=== PATIENT | female | born 1970 | race Caucasian/White ===

== ENCOUNTER 2020-09-16 22:52 | Emergency (ER) | payer OTHER ==
[~2020-09-16] VITALS: Ht 162.6 cm; Wt 86.2 kg
[2020-09-16 23:06] LABS: *BLOOD, URINE 3+ (NEGATIVE); *CLARITY,URINE CLOUDY (CLEAR); *COLOR,URINE RED (YELLOW); *KETONES,URINE TRACE (NEGATIVE); LEUKOCYTE ESTERASE ,URINE 3+ (NEGATIVE); NITRITE, URINE NEGATIVE (NEGATIVE); PH,URINE 6.5 (5.0-8.0); UGLUCOSE NEGATIVE (NEGATIVE)
--- NOTE | 2020-09-16 23:07 | NUR ---
Patient walked in from home with c/o pain with urination 1 hour prior to arrival.
--- NOTE | 2020-09-16 23:07 | NUR ---
Dr. Sánchez at bedside for MSE.
[2020-09-16 23:43] LABS: CREATININE 1.4 mg/dL (0.6-1.3)
[2020-09-16] MEDS ORDERED: PHENAZOPYRIDINE HCL 100 MG TABLET PO ONE (23:45)
[2020-09-16] MEDS ORDERED: SULFAMETH/TRIMETH 800/160 MG TABLET PO ONE (23:45)
[2020-09-16] MEDS ORDERED: PHENAZOPYRIDINE HCL 100 MG TABLET ONE (23:47)
[2020-09-16] MEDS ORDERED: SULFAMETH/TRIMETH 800/160 MG TABLET ONE (23:48)
[2020-09-16 23:49] LABS: BILIRUBIN,TOTAL 0.2 mg/dL (0.2-1.0); TOTAL PROTEIN, SERUM 7.2 g/dL (6.4-8.2)
[2020-09-16 23:52] LABS: *BILIRUBIN,URIN 1+ (NEGATIVE)
[2020-09-16 23:55] LABS: BACTERIA,URINE NONE SEEN /HPF (NONE SEEN); RBC,URINE TNTC /HPF (0-3); SQUAMOUS EPITHELIAL CELL,UR NONE SEEN /HPF (NONE SEEN); WBC,URINE 0-3 /HPF (0-3)
[2020-09-16 23:57] LABS: HEMATOCRIT 36.2 % (31.2-41.9); MEAN CORPUSCULAR HEMOGLOBIN 30.7 uug (24.7-32.8); MEAN CORPUSCULAR VOLUME 90.3 fL (75.5-95.3); PLATELET COUNT (AUTO) 247 K/uL (179-408)
--- NOTE | 2020-09-17 00:29 | NUR ---
Patient returned from CT scan.
[2020-09-17] MEDS ORDERED: SULF1TAB48 PO (01:17)
[2020-09-17] MEDS ORDERED: PHEN-705 PO (01:17)
--- NOTE | 2020-09-17 01:25 | NUR ---
Patient discharged to home in stable condition. Written and verbal after care instructions given. Patient verbalizes understanding of instructions. Stressed follow up or return to ER for worsening s/s.
[2020-09-17 01:26] VITALS: BP 156/87
== END 2020-09-17 01:26 | disposition home or self-care (01) ==
LOC: ER 22:54
DX: N39.0 Urinary tract infection, site not specified (principal); R31.0 Gross hematuria; N20.0 Calculus of kidney
CPT/HCPCS: 36415; 85025; 87086; A4663

== ENCOUNTER 2021-07-26 12:44 | Emergency (ER) | payer OTHER ==
[~2021-07-26] VITALS: Ht 162.6 cm; Wt 86.2 kg
[~2021-07-26 12:44] MED LIST: PHEN-705 PO; SULF1TAB48 PO
--- NOTE | 2021-07-26 12:54 | NUR ---
Dr Mcclellan at the bedside for MSE.
[2021-07-26] MEDS ORDERED: IBUPROFEN 600 MG TABLET ONE (12:59)
[2021-07-26] MEDS ORDERED: IBUPROFEN 600 MG TABLET PO ONE (13:00)
[2021-07-26] MEDS ORDERED: HYDR-4209 PO (14:18)
[2021-07-26 14:40] VITALS: BP 135/88
== END 2021-07-26 14:42 | disposition home or self-care (01) ==
LOC: ER 12:45
DX: R07.81 Pleurodynia (principal); Z91.81 History of falling; Z87.442 Personal history of urinary calculi; Z87.440 Personal history of urinary (tract) infections
CPT/HCPCS: 71101; 93005; A4663

== ENCOUNTER 2022-02-08 14:41 | Emergency (ER) | payer OTHER ==
[~2022-02-08] VITALS: Ht 162.6 cm; Wt 87.5 kg
[~2022-02-08 14:41] MED LIST changes: +HYDR-4209 PO
[2022-02-08 15:37] LABS: CARBON DIOXIDE 28 mmol/L (21-32); CHLORIDE 102 mmol/L (98-107); CREATININE 0.9 mg/dL (0.6-1.3); GLUCOSE 103 mg/dL (74-106); POTASSIUM 3.9 mmol/L (3.5-5.1); UREA NITROGEN, BLOOD 10 mg/dL (7-18)
[2022-02-08 15:46] LABS: HEMATOCRIT 40.1 % (31.2-41.9); MEAN CORPUSCULAR HEMOGLOBIN 29.7 uug (24.7-32.8); MEAN CORPUSCULAR VOLUME 89.6 fL (75.5-95.3); PLATELET COUNT (AUTO) 268 K/uL (179-408)
[2022-02-08 15:50] LABS: ALANINE AMINOTRANSFERASE 26 U/L (14-59); ALKALINE PHOSPHATASE 90 U/L (50-136); ASPARTATE AMINOTRANSFERASE 22 U/L (15-37); BILIRUBIN,DIRECT 0.1 mg/dL (0.0-0.2); BILIRUBIN,TOTAL 0.5 mg/dL (0.2-1.0); TOTAL PROTEIN, SERUM 8.2 g/dL (6.4-8.2)
[2022-02-08] MEDS ORDERED: HYDR-501 PO (16:10)
[2022-02-08] MEDS ORDERED: CAPS42.514 TP (16:10)
--- NOTE | 2022-02-08 16:39 | NUR ---
Gave pt RX and d/c instructions, verbalized understanding.
== END 2022-02-08 17:00 | disposition home or self-care (01) ==
LOC: ER 14:41
DX: R07.9 Chest pain, unspecified (principal); R20.2 Paresthesia of skin; R03.0 Elevated blood-pressure reading, without diagnosis of hypertension
CPT/HCPCS: 36415; 71045; 84443; 84484; 85025; 93005; A4663

== ENCOUNTER 2023-01-27 21:50 | Emergency (ER) | payer OTHER ==
[~2023-01-27] VITALS: Ht 162.6 cm; Wt 81.6 kg
[~2023-01-27 21:50] MED LIST changes: +CAPS42.514 TP; +HYDR-501 PO
[2023-01-27 22:57] LABS: HEMOGLOBIN 12.3 g/dL (10.9-14.3); RED CELL DISTRIBUTION WIDTH 13.7 % (12.3-17.7)
[2023-01-27 23:01] LABS: BASOPHILS % (AUTO) 0.6 % (0.0-2.0); EOSINOPHILS # (AUTO) 0.2 K/uL (0.0-0.7); EOSINOPHILS % (AUTO) 3.2 % (0.0-7.0); HEMATOCRIT 36.3 % (31.2-41.9); LYMPHOCYTES % (AUTO) 30.3 % (20.5-51.5); MEAN CORPUSCULAR HEMOGLOBIN 30.6 uug (24.7-32.8); MEAN CORPUSCULAR HGB CONC 34 g/dL (32.3-35.6); MEAN CORPUSCULAR VOLUME 90.4 fL (75.5-95.3); MONOCYTES # (AUTO) 0.4 K/uL (0.1-1.30); MONOCYTES % (AUTO) 5.6 % (0.0-11.0); NEUTROPHILS % (AUTO) 60.3 % (38.5-71.5); PLATELET COUNT (AUTO) 215 K/uL (179-408); RED BLOOD CELL COUNT(AUTO) 4.01 MIL/uL (3.63-4.92); WHITE BLOOD COUNT (AUTO) 6.7 K/uL (3.8-11.8)
[2023-01-27 23:02] LABS: *BILIRUBIN,URIN NEGATIVE (NEGATIVE); *BLOOD, URINE 1+ (NEGATIVE); *CLARITY,URINE CLEAR (CLEAR); *COLOR,URINE YELLOW (YELLOW); *KETONES,URINE 1+ (NEGATIVE); *PROTEIN,URINE NEGATIVE (NEGATIVE); *UROBILINOGEN,URINE 0.2 E.U./dl (NORMAL); LEUKOCYTE ESTERASE ,URINE NEGATIVE (NEGATIVE); NITRITE, URINE NEGATIVE (NEGATIVE); UGLUCOSE NEGATIVE (NEGATIVE)
[2023-01-27 23:05] LABS: DIFFERENTIAL COMMENT 1
[2023-01-27 23:07] LABS: CALCIUM 8.7 mg/dL (8.5-10.1); CARBON DIOXIDE 26 mmol/L (21-32); CHLORIDE 109 mmol/L (98-107); CREATININE 0.9 mg/dL (0.6-1.3); GLUCOSE 96 mg/dL (74-106); POTASSIUM 3.4 mmol/L (3.5-5.1); SODIUM SERUM 138 mmol/L (136-145); UREA NITROGEN, BLOOD 10 mg/dL (7-18)
[2023-01-27 23:11] LABS: RBC,URINE 0-3 /HPF (0-3)
[2023-01-27 23:12] LABS: BACTERIA,URINE NONE SEEN /HPF (NONE SEEN); SQUAMOUS EPITHELIAL CELL,UR FEW /HPF (NONE SEEN)
[2023-01-27 23:16] LABS: ALANINE AMINOTRANSFERASE 32 U/L (14-59); ALBUMIN 3.6 g/dL (3.4-5.0); ALKALINE PHOSPHATASE 65 U/L (50-136); ASPARTATE AMINOTRANSFERASE 29 U/L (15-37); BILIRUBIN,DIRECT 0.1 mg/dL (0.0-0.2); BILIRUBIN,TOTAL 0.5 mg/dL (0.2-1.0); TOTAL PROTEIN, SERUM 7.1 g/dL (6.4-8.2)
[2023-01-27 23:37] LABS: LIPASE 41 U/L (16-77)
[2023-01-28 01:17] VITALS: BP 141/87; O2SAT 100
== END 2023-01-28 01:18 | disposition home or self-care (01) ==
LOC: ER 21:51
DX: R07.89 Other chest pain (principal); R10.13 Epigastric pain; Z98.890 Other specified postprocedural states; Z79.899 Other long term (current) drug therapy
CPT/HCPCS: 36415; 71045; 74021; 83690; 83735; 84484; 85025; 93005; A4606; A4663